=== PATIENT | female | born 1955 | race Caucasian/White ===

== ENCOUNTER 2022-03-27 21:13 | Inpatient (IN) | payer MEDICARE, BC, SELFPAY ==
--- NOTE | 2022-03-27 21:17 | ECG_ITS ---
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 Measurements Intervals [place] Rate: 66 P: 73 FL: 151 QRS: 80 QRSD: 86 T: 84 QT: 391 QTc: 410 Interpretive Statements SINUS RHYTHM Compared to ECG 02/01/2019 21:39:21 No significant changes Electronically Signed On 03-28-2022 16:31:46 CDT by Dusty Davalos M.D. [id number]
[2022-03-27 21:23] VITALS: BP 125/79; PULSE 60; RESP 18; TEMP 36.7; O2SAT 100; BMI 20.9
[2022-03-27 22:19] LABS: Basophils % 0.5 %; Eosinophils # 0.2 10^3/uL (0.0-0.8); Eosinophils % 2.9 %; Hematocrit 38.2 % (37.0-47.0); Lymphocytes # 2.6 10^3/uL (0.8-4.8); Lymphocytes % 31.8 %; Mean Corpuscular Hemoglobin 31.7 pg (28.0-34.0); Mean Corpuscular Volume 93.2 fl (81-99); Mean Platelet Volume 10.2 fL (7.4-10.4); Monocytes # 0.8 10^3/uL (0.2-0.9); Monocytes % 9.6 %; Neutrophils # 4.56 10^3/uL (1.8-7.7); Nucleated Red Blood Cells % 0 %; Platelet Count 206 10^3/cmm (130-400); Red Cell Distribution Width 13.5 % (12.1-15.1); White Blood Count 8.3 10^3/uL (4.0-10.0)
[2022-03-27 22:45] LABS: Troponin(5th) Baseline 304 ng/L (0-10)
[2022-03-27 22:50] LABS: Alanine Aminotransferase 16 U/L (0-33); Albumin Level 4.3 g/dL (3.5-5.2); Alkaline Phosphatase 64 IU/L (35-105); Anion Gap 12.5 (5-19); Aspartate Amino Transferase 27 U/L (0-32); Blood Urea Nitrogen 20 mg/dL (8-23); Calcium 9.2 mg/dL (8.5-10.5); Carbon Dioxide 28 mmol/L (22-29); Chloride 100 mmol/L (98-107); Glomerular Filtration Rate 83.7 mL/min (90-130); Glucose 107 mg/dL (65-115); Lipase 36 U/L (13-60); NT Pro B Type Natriuretic Pept 464 pg/mL (0-125); Osmolality Calculated 285 mOsm/kg (285-295); Potassium 4.5 mmol/L (3.5-5.1); Sodium 136 mmol/L (136-145); Total Bilirubin 0.2 mg/dL (0.15-1.2); Total Protein 6.3 g/dL (6.6-8.7)
--- NOTE | 2022-03-27 22:58 | PC.NURSE ---
patient brought back to room 12 and placed on desk monitor. Repeat ekg performed and hswon to dr. albrecht. patient c/o chest returned @ 04/[address] Albrecht at bedside.
[2022-03-27] MEDS: aspirin 81 mg Chew Tablet 324 MG PO (23:05)
[2022-03-27] MEDS: clopidogrel 300 mg Tablet PO ×2 (23:06→23:07)
[2022-03-27] MEDS: enoxaparin 60 mg/0.6 mL Syringe SUBCUT (23:14)
--- NOTE | 2022-03-27 23:14 | ED_ITS ---
HPI - General Adult General: Chief complaint: Chest Pain Stated complaint: chest pain Time Seen by Provider: 03/27/22 22:47 History of Present Illness: 67-year-old female with a history hypertension presenting to the emergency room for concerns of chest pressure since 9 PM today. Patient reports severe at vice-client services director chest pressure with nausea without vomiting. Patient has never experienced any pain like this. No prior history of CAD. Patient denies any fever/chills, cough, runny nose sore throat, abdominal complaints, melena/hematochezia or diarrhea. Onset:9pm Duration:ongoing Location:home Severity:severe Associated symptoms: Reports chest pain; Deny dyspnea, nausea, rash, palpitations or vomiting Review of Systems Const: Denies: fever(s) or chills Eyes: Denies: change in vision ENMT: Denies: mouth pain Card: Reports: chest pain; Denies: palpitations Resp: Denies: dyspnea or non-productive cough GI: Denies: abdominal pain, nausea, vomiting or diarrhea : Denies: dysuria Musc: Denies: extremity pain Skin/Breast: Denies: rash or new lesions Neuro: Denies: weakness in extremities Psych: Reports: other (Normal mood) Jos/Lymph: Denies: easy bruising PFSH ED PFSH: Medical History (Updated 03/28/22 @ 00:46 by Dusty Davalos M.D) Hypertension Social History Smoking and tobacco status: never smoked Alcohol intake: never Substance/Drug Use: never Physical Exam Const: COMMON NORMALS: alert HENMT: COMMON NORMALS: atraumatic HEAD & SCALP: atraumatic MOUTH: moist mucous membranes not abnormal Eye: COMMON NORMALS: EOMs intact bilaterally and conjunctivae normal CONJUNCTIVA: Yes conjunctivae normal Neck/C-Spine: COMMON NORMALS: full ROM and supple Resp: COMMON NORMALS: normal respiratory effort and clear to auscultation bilaterally AUSCULTATION: clear to auscultation bilaterally Cardio: COMMON NORMALS: regular rate RATE: regular rate GI: COMMON NORMALS: Soft to palpation and non-tender PALPATION: Yes Soft to palpation Extremity: COMMON NORMALS: full ROM Neuro: SENSORIUM/ORIENTATION: Yes alert MOTOR EXAM: No Abnormal motor strength present and Other motor observations present (no focal motor deficits) Psych: COMMON NORMALS: speech normal SPEECH: Yes normal speech MOOD & AFFECT: Yes euthymic mood Course Vital Signs: Vital signs: Vital Signs Temperature 97.8 F 03/28/22 00:05 Pulse Rate 62 03/28/22 10:02 Respiratory Rate 18 03/28/22 05:00 Blood Pressure 139/72 03/28/22 01:05 Pulse Oximetry 98 03/28/22 10:02 MDM - General Adult Medical Decision Making 67-year-old female with history of hypertension presenting to the emergency room with chest pressure since 9 PM. Initial troponin of 300. Initial EKG not meet STEMI criteria. Repeat EKG at 11:11 showed STEMI consistent with inferioposteriolateral STEMI. Patient received aspirin 325, multiple doses of nitro, morphine, Lovenox, and Plavix 600 mg. Case was discussed needed with Dr. Davalos who recommended Boat Finisher. 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 Lab Data : 03/27/22 22:11 03/27/22 22:11 Laboratory Results WBC 8.3 10^3/uL (4.0-10.0) 03/27/22 22:11 RBC 4.10 10^6/uL (4.1-5.3) 03/27/22 22:11 Hgb 13.0 g/dL (11.5-15.3) 03/27/22 22:11 Hct 38.2 % (37.0-47.0) 03/27/22 22:11 MCV 93.2 fl (81-99) 03/27/22 22:11 MCH 31.7 pg (28.0-34.0) 03/27/22 22:11 MCHC 34.0 g/dL (30.0-36.0) 03/27/22 22:11 RDW 13.5 % (12.1-15.1) 03/27/22 22:11 Plt Count 206 10^3/cmm (130-400) 03/27/22 22:11 MPV 10.2 fL (7.4-10.4) 03/27/22 22:11 Neut % (Auto) 55.0 % 03/27/22 22:11 Lymph % (Auto) 31.8 % 03/27/22 22:11 [place] % (Auto) 9.6 % 03/27/22 22:11 Eos % (Auto) 2.9 % 03/27/22 22:11 Baso % (Auto) 0.5 % 03/27/22 22:11 Neut # (Auto) 4.56 10^3/uL (1.8-7.7) 03/27/22 22:11 Lymph # (Auto) 2.6 10^3/uL (0.8-4.8) 03/27/22 22:11 [place] # (Auto) 0.8 10^3/uL (0.2-0.9) 03/27/22 22:11 Eos # (Auto) 0.2 10^3/uL (0.0-0.8) 03/27/22 22:11 Baso # (Auto) 0.0 10^3/uL (0.0-0.1) 03/27/22 22:11 Nucleated RBC % (auto) 0 % 03/27/22 22:11 Nucleated RBCs # 0.0 /100WBC 03/27/22 22:11 PT 13.00 SECONDS (12.1-14.9) 03/27/22 22:11 INR 0.96 (0.8-1.2) 03/27/22 22:11 APTT 32.4 SECONDS (23.9-36.7) 03/27/22 22:11 Sodium 136 mmol/L (136-145) 03/27/22 22:11 Potassium 4.5 mmol/L (3.5-5.1) 03/27/22 22:11 Chloride 100 mmol/L (98-107) 03/27/22 22:11 Carbon Dioxide 28 mmol/L (22-29) 03/27/22 22:11 Anion Gap 12.5 (5-19) 03/27/22 22:11 BUN 20 mg/dL (8-23) 03/27/22 22:11 Creatinine 0.7 mg/dL (0.5-0.9) 03/27/22 22:11 GFR Calculation 83.7 mL/min (90-130) L 03/27/22 22:11 Glucose 107 mg/dL (65-115) 03/27/22 22:11 Calculated Osmolality 285 mOsm/kg (285-295) 03/27/22 22:11 Calcium 9.2 mg/dL (8.5-10.5) 03/27/22 22:11 Total Bilirubin 0.2 mg/dL (0.15-1.2) 03/27/22 22:11 AST 27 U/L (0-32) 03/27/22 22:11 ALT 16 U/L (0-33) 03/27/22 22:11 Alkaline Phosphatase 64 IU/L (35-105) 03/27/22 22:11 Troponin T Baseline 304 ng/L (0-10) H* 03/27/22 22:11 NT-Pro-B Natriuret Pep 464 pg/mL (0-125) H 03/27/22 22:11 Total Protein 6.3 g/dL (6.6-8.7) L 03/27/22 22:11 Albumin 4.3 g/dL (3.5-5.2) 03/27/22 22:11 Globulin 2.0 g/dL (1.3-4.6) 03/27/22 22:11 Lipase 36 U/L (13-60) 03/27/22 22:11 Discharge Plan Discharge Patient Disposition: Admitted As Inpatient Admit Provider: Dusty Davalos Clinical Impression: ST elevation (STEMI) myocardial infarction Condition: Stable Coding Level of Care Code ED Watch Parts Inspector for Ludyg Fwd Exam Comprehensive
[2022-03-27 23:16] LABS: INR 0.96 (0.8-1.2); Partial Thromboplastin Time 32.4 SECONDS (23.9-36.7)
--- NOTE | 2022-03-27 23:17 | ECG_ITS ---
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 Measurements Intervals [place] Rate: 76 P: 88 [place]: 150 QRS: 89 QRSD: 85 T: 86 QT: 384 QTc: 433 Interpretive Statements SINUS RHYTHM WITH FREQUENT VENTRICULAR PREMATURE COMPLEXES Compared to ECG 03/27/2022 21:20:56 Ventricular premature complex(es) now present Electronically Signed On 03-28-2022 16:38:52 CDT by Dusty Davalos M.D. [email or web address].[employer]/store/[id number]
[2022-03-27] MEDS: morphine 4 mg/mL SDV 1 mL 2 MG IVP (23:21)
--- NOTE | 2022-03-27 23:23 | PC.NURSE ---
Went to admin sublingual nitro to patient. Dr Anguiano stated to hold medication after being scanned.
--- NOTE | 2022-03-27 23:26 | XACV_ITS ---
Exam Room: 2 Ht: 168 cm Wt: 59 kg BSA: 1.66 m2 Gender: Female : 1955 Any Known Allergies: No known allergies Exam Priority: Routine Procedure(s): Procedure Description: Diagnostic procedure Procedure Description: Left Heart Catheterization Procedure Description: Left ventriculography Procedure Description: Coronary Angiography Diagnostic Cath Status: Emergency Diagnostic Findings * Left main artery: Short * , patent. No significant * stenosis Left circumflex artery: In the distal segment, diffuse narrowing consistent with spontaneous coronary artery dissection(SCAD) extending into OM branch. LAD: Patent. No significant stenosis RCA: Patent with no significant stenosis . * INDICATION: 67 year old female with past medical history of hypertension came to the hospital with on and off chest pain for the last 2 days. Her father recently and since then she has been having chest discomfort. It got worse about 1 to 2 hours prior to hospital presentation. Initial EKG did not reveal ST elevation. She was having frequent PVCs. Repeat EKG demonstrated ST elevations in inferior and posterior leads. Financial Systems Manager was activated and patient was brought to the cardiac Financial Systems Manager emergently. * Coronary angiography shows right dominance. Conclusions 1. Left main artery: Short 2. , patent. No significant 3. stenosis Left circumflex artery: In the distal segment, diffuse narrowing consistent with spontaneous coronary artery dissection(SCAD) extending into OM branch. LAD: Patent. No significant stenosis RCA: Patent with no significant stenosis . 4. Moderate left ventricular systolic dysfunction. Ejection fraction of 40%. Recommendations * Patient will be treated medically as has SCAD of left circumflex artery and stress cardiomyopathy. * Aspirin Plavix for at least 1 year. * High intensity statin therapy. * Beta-ting and lisinopril therapy. * Transferred to ICU. * Order echocardiogram. Interventional RX Recommendation: medical therapy and/or counseling Diagnostic RX Recommendation: medical therapy and/or counseling Anticoagulation: Heparin Ventriculography Ejection Fraction: 40.0 % Left Ventriculography Findings: * Apical hypokinesis consistent with stress cardiomyopathy. Pressures Phase:Rest AO : 122 / 82 ( 101 ) @ 6:57:02 PM 119 / 78 ( 97 ) @ 6:57:02 PM 123 / 79 ( 99 ) @ 6:57:02 PM 142 / 76 ( 106 ) @ 6:57:02 PM 140 / 74 ( 104 ) @ 6:57:02 PM LV : 155 / -9 / 15 @ 6:57:02 PM 133 / 20 / 17 @ 6:57:02 PM 128 / 0 / 20 @ 6:57:02 PM Valves Phase:DefaultPhase AV : 0.0 @ 11:57:02 PM 0.0 @ 11:57:02 PM AV Mean Gradient: 0.0 @ 11:57:02 PM Clinical Evaluation EBL: 5mL-10mL Procedural Details Pre-Procedure Time Out. Identified patient by full name and date of as verbalized by the patient/guarantor. Does the consent match the physician's order: N/A Emergent. Accurate & Complete Informed Consent: N/A Emergent. Inpatient/Outpatient History & Physical on Chart: N/A Emergent. If H&P is completed, is and addenduem needed: N/A Emergent; If yes, is the addendum complete: N/A Emergent. Visualize and Verify Site with Patient/Guarantor: N/A. Relevant Radiology Images available: N/A Emergent. Pre-op teaching completed and patient verbalized understanding. The risks, benefits, and alternatives of sedation and/or procedure were discussed by physician. The patient agrees to continue. Procedure started. [facility] Clinical Fraility Score: 3: Managing Well. Financial Systems Manager Indications: ACS <= 24 hours. Chest Pain Symptom Assessment: Typical Angina Symptoms. Cardiovascular Instability: Yes, if yes, Persistant Ischemic Symptoms. Correct patient, site and procedure confirmed by cath team. Current diagnosis: STEMI. PERRLA. Strong, equal hand elementary secretary bilaterally. Lungs clear x 5 lobes. IV Site on Arrival: 18 gauge in the left anticubital. IV Fluids: 0.9% NaCl at KVO. 0 mL infused prior to solar lab technician. Oxygen started at 2liters/min via nasal canula. right groin was prepped with chloroprep then draped in the usual sterile fashion. right radial was prepped with chloroprep then draped in the usual sterile fashion. Physician notified. Baseline sample Acquired. HR: 70 BPM. Physician arrived. Physician scrubbed in. Immediate Pre-Procedure Time Out. Correct Patient: N/A Emergent; Correct Procedure: N/A Emergent; Correct Site: N/A Emergent; Correct Patient Position: N/A Emergent; Correct Supplies: N/A Emergent; Dried Flammable Prep: N/A Emergent; Blood Products Available: N/A Emergent;. Lidocaine 1% infiltrated to the right radial. Current Diagnosis : STEMI. Arterial access obtained. A 5 nauruan TIG catheter in over wire. Multiple views taken of left coronary artery. Catheter redirected to the RCA. Multiple views taken of right coronary artery. Catheter removed over the standard wire. A 5 nauruan Angled Pig catheter in over wire. EDP Sample taken: LV 155/-9,15; HR: 96 BPM; SpO2: 99%. LV gram performed in MADSEN @ 10 mL/second for a total of 30 mL. EDP Sample taken: LV 133/20,17; HR: 98 BPM; SpO2: 100%. Pullback taken: LV 128/0,20; AO 142/76(106); Mean: 0mmHg, Peak to Peak: 0mmHg, SEP: 6sec/min; HR: 71 BPM; SpO2: 100%. Catheter removed over the exchange wire. Physician scrubbed out. A TR Band was successful obtaining hemostatsis at the Right Radial artery insertion site. TR band placed. Hemostasis obtained. Post Procedure: Pulses reassessed and unchanged. PERRLA. Strong, equal hand elementary secretary bilaterally. No VTE prophylaxis required. Medication's Wasted: Lidocaine 1% = 2 mL. Medication's Wasted: Nitro = 49.6 mg. Medication's Wasted: Heparin = 1000 units. Medication's Wasted: Other = Fentanyl 75 mg. Vital chart was stopped. Total IV fluids: 19 mL. Contrast type used: Omnipaque 300 mgI/mL, 500 mL bottle. 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 Complications: None. Estimated blood loss: 5mL-10mL. Responsiveness - Normal response to verbal stimuli; alert and oriented, PERRLA. Airway - Unaffected, no intervention required; spontaneous ventilation. Circulation: W/N/L, pulses unchanged. Nausea/Vomiting: No. Procedure completed. Patient transferred by wheelchair to ICU. Access Site Site: Right Radial artery Sheath Size: 6 Fr Hemostasis Method: TR Band Hemostasis Success: Successful Procedure Medications Start: 11:38 PM Stop: 11:38 PM Medication: Versed Amount: 2 mg Route: I.V. Start: 11:38 PM Stop: 11:38 PM Medication: Fentanyl Amount: 25 mcg Route: I.V. Start: 11:41 PM Stop: 11:41 PM Medication: Nitrogylcerin Amount: 200 mcg Route: I.A. Start: 11:46 PM Stop: 11:46 PM Medication: Nitrogylcerin Amount: 200 mcg Route: I.A. I, the attending physician, have reviewed and verified all procedure medications. Yes, all medications given per verbal order History/Risk Factors Hypertension: No Dyslipidemia: No Peripheral Arterial Disease (PAD): No Myocardial Infarction (MT): No Obesity: No Prior Interventions PCI: No CABG: No Valve Surgery: No Report Signatures Finalized by Dusty Davalos MD on 04/05/2022 05:31 PM
--- NOTE | 2022-03-27 23:27 | PC.NURSE ---
4mg Morphine not given due to order change.
--- NOTE | 2022-03-27 23:33 | PM.HP ---
Providers/Chief Complaint Admitting Physician: Dusty Davalos MD/Cardiology Chief Complaint: chest pain History of Present Illness Nanda Benavides is a 67 year old female with past medical history of hypertension came to the hospital with on and off chest pain for the last 2 days. Her father recently and since then she has been having chest discomfort. It got worse about 1 to 2 hours prior to hospital presentation. Initial EKG did not reveal ST elevation. She was having frequent PVCs. Repeat EKG demonstrated ST elevations in inferior and posterior leads. Secretary Specialist was activated and patient was brought to the cardiac Secretary Specialist emergently. Coronary angiogram demonstrates spontaneous coronary artery dissection of distal left circumflex artery. LV gram shows reduced LV systolic function with EF of 35 to 40% and apical ballooning, pattern consistent with stress cardiomyopathy. Medical therapy was decided. Review of Systems Narrative: CONSTITUTIONAL: No fever chills weight loss or gain or night sweats. [] HEENT: Normocephalic, atraumatic.[] RESPIRATORY: No cough, sputum, hemoptysis or wheezing.[] CARDIOVASCULAR: Has chest pain. GI: no nausea vomiting diarrhea. [] ELECTRONICS TECHNICIAN: No numbness, tingling, weakness or loss of function in any part of the body. [] MUSCULOSKELETAL: No knee or joint pain or rashes. [] Medications/Allergies Home Medications Medication Instructions Recorded Confirmed Last Taken Type atorvastatin 10 mg tablet mg 03/28/22 03/27/22 History citalopram 20 mg tablet mg 03/28/22 03/27/22 History doxycycline calcium 03/28/22 03/27/22 History loratadine 10 mg tablet (Claritin) 10 mg PO DAILY 03/28/22 03/28/22 03/27/22 History olmesartan 5 mg tablet mg 03/28/22 1 Day Ago History ~03/27/22 prednisolone acetate 1 % eye drp 03/28/22 Unknown History drops,suspension Allergies Allergy/AdvReac Type Severity Reaction Status Date / Time No Known Allergies Allergy Verified 03/27/22 21:22 PFSH Acute PFSH: Medical History (Updated 03/28/22 @ 00:46 by Dusty Davalos M.D) Hypertension Social History Smoking and tobacco status: never smoked Alcohol intake: never Substance/Drug Use: never Vitals/I&O/Wt Last Vital Signs Temp 98.1 F 03/27/22 21:23 Pulse 60 03/27/22 21:23 Resp 18 03/27/22 21:23 BP 125/79 03/27/22 21:23 Pulse Ox 100 03/27/22 21:23 Weight last 48 hrs Weight 130 lb Physical Exam Narrative: GENERAL: Patient is alert, awake and oriented x3. [] NECK: No jugular vein distension. [] HEENT: No cyanosis. No icterus. No pallor. [] HEART: Regular S1 and S2. No murmur, rub or gallop. [] LUNGS: Clear to auscultate bilaterally. [] ABDOMEN: Soft, nontender and nondistended. Positive bowel sounds. No guarding, rebound or tenderness. [] CENTRAL NERVOUS SYSTEM: Grossly nonfocal. [] EXTREMITIES: Lower extremities with 1+ edema bilaterally. Pulses palpable in the lower extremities, both dorsalis pedis and posterior tibial. [] Data : 03/27/22 22:11 03/27/22 22:11 A&P Assessment and plan (1) Hypertension: Status: Acute (2) Stress-induced cardiomyopathy: Status: Acute (3) Spontaneous dissection of coronary artery: Status: Acute Plan Patient has presented with chest pain. Initial EKG did not show ST elevation however repeat EKG demonstrated inferior and posterior ST elevations. She was emergently brought to the cardiac Secretary Specialist. Coronary angiogram demonstrates spontaneous coronary artery dissection of distal left circumflex artery. It has compromised flow into a very tortuous small sized OM. Decision made to medically treat at this time. Patient also has apical ballooning. This is consistent with her recent major life stressor. Continue aspirin and Plavix. We will start beta-ting therapy with metoprolol 12.5 twice daily at this time. Continue atorvastatin. Will continue with anticoagulation for 48 hours. Order echocardiogram. Attestations Medical Necessity Statement*: Care expect acute ST elevation [place]. Patient presented with chest pain, EKG evolved into ST elevation OH. Coronary angiogram demonstrated spontaneous coronary artery dissection of left circumflex artery and apical ballooning on LV gram was seen. Medical management for these issues. Coding Level of Care Code Acute Police Radio Dispatcher for [facility] [place] Diagnoses Hypertension I10 Stress-induced cardiomyopathy I51.81 Spontaneous dissection of coronary artery I25.42
[2022-03-28] VITALS (36 sets, daily range): BP systolic 105–139; BP diastolic 59–80; PULSE 54–86; RESP 14–25; TEMP 36.6–36.8; O2SAT 93–100
--- NOTE | 2022-03-28 00:41 | USCV_ITS ---
Nanda Benavides Age: 67 Gender: F : 1955 Exam Date: 03/28/2022 02:30 Ordering Phys: Dusty Davalos M.D ([email or web address]) Technologist: MARGARET [place]am Location[place] [facility] [place] Indication: post CT BP: 139 / 72 HR: 63 Rhythm: Sinus Technical Quality: Adequate MEASUREMENTS (Male / Female) Normal Values 2D ECHO LV Diastolic Diameter PLAX 3.6 cm 4.2 - 5.9 / 3.9 - 5.3 cm LV Systolic Diameter PLAX 2.3 cm IVS Diastolic Thickness 0.9 cm 0.6 - 1.0 / 0.6 - 0.9 cm IVS Systolic Thickness 1.2 cm LVPW Diastolic Thickness 1.0 cm 0.6 - 1.0 / 0.6 - 0.9 cm LVPW Systolic Thickness 1.2 cm LVOT Diameter 1.8 cm LV Ejection Fraction 2D Teich 67.3 % LV Ejection Fraction MOD 2C 63.6 % LV Ejection Fraction 2C AL 63.7 % LA Diameter 3.2 cm LA Width 3.9 cm LA Height 4.5 cm RA Width 2.7 cm RA Height 4.0 cm Aorta at Sinotubular Diameter 3.0 cm IVC Diameter 1.9 cm M-MODE Aortic Annulus Diameter 2.3 cm LA Ao Ratio MM 1.3 MV E Point Septal Separation 0.5 cm DOPPLER AV Peak Velocity 146.0 cm/s LVOT Peak Velocity 81.0 cm/s AV Area Cont Eq vti 1.5 cm squared AV Area Cont Eq pk 1.3 cm squared MV Peak Velocity 108.0 cm/s MV Area PHT 2.8 cm squared Mitral E to A Ratio 1.2 MV E' Velocity 45.5 cm/s Mitral E to MV E' Ratio 7.3 Mitral E to LV E' Lateral Ratio 8.5 Mitral E to LV E' Septal Ratio 6.5 TR Peak Velocity 241.5 cm/s TR Peak Gradient 23.3 mmHg TV Peak E Velocity 43.0 cm/s Right Atrial Pressure 5.0 mmHg Pulmonary Artery Systolic Pressu 28.3 mmHg PV Peak Velocity 79.0 cm/s RV Acceleration Time 0.1 s RV Ejection Time 0.4 s RV AcT/ET 0.3 FINDINGS Left Ventricle Left ventricle is normal in size. LV systolic function is mildly reduced with EF of 45 to 50%. Mild to moderate hypokinesis of apical inferolateral, apical and distal anterolateral huang. Right Ventricle Normal in size and function. Right Atrium Normal in size Left Atrium Normal in size Mitral Valve Normal in structure. Trace mitral regurgitation. Aortic Valve Normal anatomy structure. No significant stenosis or regurgitation. Tricuspid Valve Mild tricuspid regurgitation. RVSP is 25-30. Pulmonic Valve Not well-visualized Pericardium Trace pericardial effusion Aorta Normal aortic size IVC CONCLUSIONS LV systolic function is mildly reduced with EF of 45 to 50%. Mild to moderate hypokinesis of apical inferolateral, apical and distal anterolateral huang. Trace mitral regurgitation. No significant valvular heart disease seen. No comparison studies are available Dusty Davalos MD (Electronically Signed) Final Date: 28 March 2022 17:29 S
[2022-03-28] MEDS: sodium chloride 0.9% 1,000 ML 100 ML IV ×3 (00:59→21:28)
[2022-03-28] MEDS: metoprolol tartrate 25 mg Tablet 12.5 MG PO (01:01)
[2022-03-28] MEDS: temazepam 15 mg Capsule PO (01:01)
--- NOTE | 2022-03-28 03:17 | ECG_ITS ---
[facility] Test Date: 2022-03-28 Pat Name: Nanda Benavides Department: Room: ICU02 Gender: Female Global Process Owner: : 1955 Requested By: Jon Arreguin Order Number: [id number] Lluvia MD: Dusty Davalos M.D. Measurements Intervals [place] Rate: 59 P: 80 [place]: 164 QRS: 90 QRSD: 90 T: 79 QT: 411 QTc: 410 Interpretive Statements SINUS BRADYCARDIA ST ELEVATION, CONSIDER INFERIOR INJURY [MARKED ST ELEVATION W/O NORMALLY INFLECTED T-WAVE IN II/aVF] ACUTE HI Compared to ECG 03/27/2022 22:49:16 ST (T wave) deviation now present Myocardial infarct finding now present Sinus rhythm no longer present Ventricular premature complex(es) no longer present Electronically Signed On 03-28-2022 16:36:12 CDT by Dusty Davalos M.D. [id number]
[2022-03-28] MEDS: fentaNYL 50 mcg/mL INJ 2mL 25 MCG IVP (05:00)
[2022-03-28 05:59] LABS: Troponin 5 6HR 600.9 ng/L (0-10); Troponin 5 6HR Delta 296.9 ng/L (0-12)
--- NOTE | 2022-03-28 07:32 | PC.PHAR ---
UNABLE TO VERIFY MEDICATIONS WITH PT-MEDICATIONS ENTERED ARE WHAT EXT MED HISTORY SHOWS HAS BEEN FILLED RECENTLY
--- NOTE | 2022-03-28 08:02 | ECG_ITS ---
[facility] Test Date: 2022-03-28 Pat Name: Nanda Benavides Department: Room: ICU02 Gender: Female Validation Analyst: : 1955 Requested By: Dusty Davalos Order Number: [id number] Lluvia MD: Dusty Davalos M.D. Measurements Intervals [place] Rate: 58 P: 75 [place]: 171 QRS: 65 QRSD: 86 T: -11 QT: 412 QTc: 405 Interpretive Statements SINUS BRADYCARDIA WITH OCCASIONAL VENTRICULAR PREMATURE COMPLEXES ABNORMAL QRS-T ANGLE [QRS-T AXIS DIFFERENCE > 60] Compared to ECG 03/28/2022 03:26:18 Ventricular premature complex(es) now present ST (T wave) deviation no longer present Myocardial infarct finding no longer present Electronically Signed On 03-28-2022 16:30:11 CDT by Dusty Davalos M.D. [id number]
[2022-03-28] MEDS: metoprolol tartrate 25 mg Tablet PO ×2 (09:27→20:15)
[2022-03-28] MEDS: clopidogrel 75 mg Tablet PO (09:27)
[2022-03-28] MEDS: enoxaparin 60 mg/0.6 mL Syringe SUBCUT ×2 (09:28→21:06)
[2022-03-28] MEDS: aspirin 81 mg EC Tablet PO (09:28)
--- NOTE | 2022-03-28 10:41 | PC.CHAP ---
Pastoral Care Encounter/Spiritual Assessment Type of Contact [] Declined freelance graphic designer visit [] Patient/Family/Request visit [] Outpatient visit [] Follow-up visit [] Physician referral [] Code/Alert [x] Routine visit [] Staff referral [] Actively dying [x] Patient sleeping [] Family support [] [] Out of room [] Palliative care [] [] Receiving care in room [] Pre-surgical visit [] Trauma [] Long length of stay [x] ICU visit [] Other: Relational/Emotional Strength [] Patient feels connected with others/family/visitors/staff [] Distress [] Loneliness/isolation [] Abandonment Spirituality of Patient [] Person of Jill [] Attends Jew of their Jill [] Believes in Prayer [] Reads Bible or Samaritan materials [] There are Spiritual issues to be addressed Digestion Operator Interventions [x] Prayer [] Active listening [] Non-anxious presence [] Spiritual/emotional support [] Crisis/trauma care [] Spiritual counseling [] Bereavement support [] Provided bereavement packet [] Provided Bible/devotional materials [] Provided toy/stuffed animal, coloring book to patient or family member [] Provided Communion [] Anointing/[place] [] Salvation [x] Completed spiritual assessment [] Other: Impact on Illness or Injury [] Angry [] Fearful [] Anxious [] Often cries [] Exhaustion [] Unable to work [] Unable to attend mu-ism [] Unable to walk/stand [] Unable to read [] Unable to drive [] Unable to eat/drink [] Unable to sleep [] Unable to be with family [] Patient intubated [] Other: Summary Time spent with patient
--- NOTE | 2022-03-28 17:31 | P.PN_ITS ---
Subjective Subjective: Patient is feeling better. No chest pain now. EKG changes have resolved. Vitals/I&O/Wt Last Vital Signs Temp 98.2 F 03/28/22 10:00 Pulse 61 03/28/22 16:00 Resp 20 H 03/28/22 16:00 BP 122/71 03/28/22 16:00 Pulse Ox 96 03/28/22 16:00 03/28/22 03/28/22 03/28/22 06:59 14:59 22:59 Intake Total 200 / 200 1088.333 / 1088.333 Output Total Balance 200 / 200 1087.333 / 1087.333 Weight last 48 hrs Weight 130 lb Physical Exam Narrative: GENERAL: Patient is alert, awake and oriented x3. [] NECK: No jugular vein distension. [] HEENT: No cyanosis. No icterus. No pallor. [] HEART: Regular S1 and S2. No murmur, rub or gallop. [] LUNGS: Clear to auscultate bilaterally. [] ABDOMEN: Soft, nontender and nondistended. Positive bowel sounds. No guarding, rebound or tenderness. [] CENTRAL NERVOUS SYSTEM: Grossly nonfocal. [] EXTREMITIES: Lower extremities with 1+ edema bilaterally. Pulses palpable in the lower extremities, both dorsalis pedis and posterior tibial. 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 Initial EKG did not show ST elevation however repeat EKG demonstrated inferior and posterior ST elevations. She was emergently brought to the cardiac Carpentry Professional. Coronary angiogram demonstrates spontaneous coronary artery dissection of distal left circumflex artery. It had compromised flow into a very tortuous small sized OM. Decision made to med [facility] and the [facility] treat at this time. Patient also has apical ballooning. This is consistent with her recent major life stressor and stress cardiomyopathy. Continue aspirin and Plavix. Metoprolol uptitrated Continue atorvastatin, will uptitrate Will continue with anticoagulation for 48 hours. ECHO ordered If patient stays stable by tomorrow, plan on discharging home tomorrow. Attestations Medical Necessity Statement*: Care expected to cross [address] elevation [place] was found to have spontaneous coronary artery dissection and stress cardiomyopathy. Will be medically treated. Coding Level of Care Code Acute Crop Puller for Dejan Aguila Diagnoses Hypertension I10 Stress-induced cardiomyopathy I51.81 Spontaneous dissection of coronary artery I25.42
[2022-03-28] MEDS: atorvastatin 40 mg Tablet PO (20:15)
[2022-03-29] VITALS (20 sets, daily range): BP systolic 105–125; BP diastolic 66–80; PULSE 53–90; RESP 18–27; TEMP 36.8–37.1; O2SAT 93–98
[2022-03-29] MEDS: temazepam 15 mg Capsule PO (00:31)
[2022-03-29 05:06] LABS: Basophils % 0.5 %; Eosinophils # 0.1 10^3/uL (0.0-0.8); Eosinophils % 2.5 %; Hematocrit 36.1 % (37.0-47.0); Hemoglobin 11.1 g/dL (11.5-15.3); Lymphocytes # 2.1 10^3/uL (0.8-4.8); Lymphocytes % 37.8 %; Mean Corpuscular HGB Conc 30.7 g/dL (30.0-36.0); Mean Corpuscular Hemoglobin 31.4 pg (28.0-34.0); Mean Platelet Volume 10.4 fL (7.4-10.4); Monocytes # 0.6 10^3/uL (0.2-0.9); Monocytes % 10.8 %; Neutrophils # 2.67 10^3/uL (1.8-7.7); Neutrophils % 48.2 %; Nucleated Red Blood Cells % 0 %; Platelet Count 166 10^3/cmm (130-400); Red Blood Count 3.54 10^6/uL (4.1-5.3); Red Cell Distribution Width 14.2 % (12.1-15.1); White Blood Count 5.6 10^3/uL (4.0-10.0)
[2022-03-29 05:31] LABS: Blood Urea Nitrogen 12 mg/dL (8-23); Calcium 7.7 mg/dL (8.5-10.5); Carbon Dioxide 24 mmol/L (22-29); Chloride 110 mmol/L (98-107); Glomerular Filtration Rate 123.4 mL/min (90-130); Glucose 96 mg/dL (65-115); Osmolality Calculated 290 mOsm/kg (285-295); Sodium 140 mmol/L (136-145)
[2022-03-29] MEDS: aspirin 81 mg EC Tablet PO (07:55)
[2022-03-29] MEDS: clopidogrel 75 mg Tablet PO (07:56)
[2022-03-29] MEDS: metoprolol tartrate 25 mg Tablet PO (07:56)
--- NOTE | 2022-03-29 08:12 | P.DS_ITS ---
Discharge Providers Date of Admission: 03/27/2022 Date of Discharge: March 29, 2022 Attending Provider at Admission: Dusty Davalos M.D Attending Provider at Discharge: Dusty Davalos M.D Diagnoses at Discharge Discharge Diagnosis (1) Hypertension: Status: Acute (2) Stress-induced cardiomyopathy: Status: Acute (3) Spontaneous dissection of coronary artery: Reason for Visit Reason for Visit: chest pain Brief History: ?67 year old female with past medical history of hypertension came to the [facility] with on and off chest pain for the last 2 days.? Her father recently and since then she has been having chest discomfort.? It got worse about 1 to 2 hours prior to hospital presentation.? Initial EKG did not reveal ST elevation.? She was having frequent PVCs.? Repeat EKG demonstrated ST elevations in inferior and posterior leads.? Engine Assembly Supervisor was activated and patient was brought to the cardiac Engine Assembly Supervisor emergently.? Hospital Course Hospital Course ?67 year old female with past medical history of hypertension came to the hospital with on and off chest pain for the last 2 days.? Her father recently and since then she has been having chest discomfort.? It got worse about 1 to 2 hours prior to hospital presentation.? Initial EKG did not reveal ST elevation.? She was having frequent PVCs.? Repeat EKG demonstrated ST elevations in inferior and posterior leads.? Engine Assembly Supervisor was activated and patient was brought to the cardiac Engine Assembly Supervisor emergently. Coronary angiogram showed spontaneous coronary artery dissection of left circumflex artery extending into an OM branch. Medical therapy was decided. LV gram showed hypokinesis of apex, consistent with stress-induced cardiomyopathy. Echocardiogram later showed improved LV systolic function with EF of 45 to 50%. Patient chest pain was managed medically. She was transferred to ICU. She became chest pain-free and EKG changes resolved. She was discharged home in a stable condition on aggressive medical therapy. Physical Exam Narrative: GENERAL: Patient is alert, awake and oriented x3. [] NECK: No jugular vein distension. [] HEENT: No cyanosis. No icterus. No pallor. [] HEART: Regular S1 and S2. No murmur, rub or gallop. [] LUNGS: Clear to auscultate bilaterally. [] ABDOMEN: Soft, nontender and nondistended. Positive bowel sounds. No guarding, rebound or tenderness. [] CENTRAL NERVOUS SYSTEM: Grossly nonfocal. [] EXTREMITIES: Lower extremities with 1+ edema bilaterally. Pulses palpable in the lower extremities, both dorsalis pedis and posterior tibial. [] Discharge Data Studies Completed and Pending Completed Studies During Hospitalization Category Date Time Status CV. echo complete* [id number] Routine Ultrasound 03/28/22 00:41 Completed Pending at discharge Category Date Time Status SPINE SPECIALIST request for service Stat Exams 03/27/22 23:26 Taken Basic Metabolic Panel AM LABS Lab 03/30/22 04:00 Ordered Basic Metabolic Panel AM LABS Lab 03/31/22 04:00 Ordered Complete Blood Count w/Auto AM LABS Lab 03/30/22 04:00 Ordered Complete Blood Count w/Auto AM LABS Lab 03/31/22 04:00 Ordered Laboratory Results WBC 5.6 10^3/uL (4.0-10.0) 03/29/22 04:12 RBC 3.54 10^6/uL (4.1-5.3) L 03/29/22 04:12 Hgb 11.1 g/dL (11.5-15.3) L 03/29/22 04:12 Hct 36.1 % (37.0-47.0) L 03/29/22 04:12 MCV 102.0 fl (81-99) H 03/29/22 04:12 MCH 31.4 pg (28.0-34.0) 03/29/22 04:12 MCHC 30.7 g/dL (30.0-36.0) 03/29/22 04:12 RDW 14.2 % (12.1-15.1) 03/29/22 04:12 Plt Count 166 10^3/cmm (130-400) 03/29/22 04:12 MPV 10.4 fL (7.4-10.4) 03/29/22 04:12 Neut % (Auto) 48.2 % 03/29/22 04:12 Lymph % (Auto) 37.8 % 03/29/22 04:12 Bowman % (Auto) 10.8 % 03/29/22 04:12 Eos % (Auto) 2.5 % 03/29/22 04:12 Baso % (Auto) 0.5 % 03/29/22 04:12 Neut # (Auto) 2.67 10^3/uL (1.8-7.7) 03/29/22 04:12 Lymph # (Auto) 2.1 10^3/uL (0.8-4.8) 03/29/22 04:12 Bowman # (Auto) 0.6 10^3/uL (0.2-0.9) 03/29/22 04:12 Eos # (Auto) 0.1 10^3/uL (0.0-0.8) 03/29/22 04:12 Baso # (Auto) 0.0 10^3/uL (0.0-0.1) 03/29/22 04:12 Nucleated RBC % (auto) 0 % 03/29/22 04:12 Nucleated RBCs # 0.0 /100WBC 03/29/22 04:12 PT 13.00 SECONDS (12.1-14.9) 03/27/22 22:11 INR 0.96 (0.8-1.2) 03/27/22 22:11 APTT 32.4 SECONDS (23.9-36.7) 03/27/22 22:11 Sodium 140 mmol/L (136-145) 03/29/22 04:12 Potassium 4.0 mmol/L (3.5-5.1) 03/29/22 04:12 Chloride 110 mmol/L (98-107) H 03/29/22 04:12 Carbon Dioxide 24 mmol/L (22-29) 03/29/22 04:12 Anion Gap 10.0 (5-19) 03/29/22 04:12 BUN 12 mg/dL (8-23) 03/29/22 04:12 Creatinine 0.5 mg/dL (0.5-0.9) 03/29/22 04:12 GFR Calculation 123.4 mL/min (90-130) 03/29/22 04:12 Glucose 96 mg/dL (65-115) 03/29/22 04:12 Calculated Osmolality 290 mOsm/kg (285-295) 03/29/22 04:12 Calcium 7.7 mg/dL (8.5-10.5) L 03/29/22 04:12 Total Bilirubin 0.2 mg/dL (0.15-1.2) 03/27/22 22:11 AST 27 U/L (0-32) 03/27/22 22:11 ALT 16 U/L (0-33) 03/27/22 22:11 Alkaline Phosphatase 64 IU/L (35-105) 03/27/22 22:11 Troponin T Baseline 304 ng/L (0-10) H* 03/27/22 22:11 Troponin T Hi Sens 6Hr 600.9 ng/L (0-10) H 03/28/22 04:11 Troponin T Hi Sens 6Hr Delta 296.9 ng/L (0-12) H* 03/28/22 04:11 NT-Pro-B Natriuret Pep 464 pg/mL (0-125) H 03/27/22 22:11 Total Protein 6.3 g/dL (6.6-8.7) L 03/27/22 22:11 Albumin 4.3 g/dL (3.5-5.2) 03/27/22 22:11 Globulin 2.0 g/dL (1.3-4.6) 03/27/22 22:11 Lipase 36 U/L (13-60) 03/27/22 22:11 Vitals Last Vital Signs Temp 98.4 F 03/29/22 04:00 Pulse 56 L 03/29/22 05:48 Resp 18 03/29/22 05:30 BP 123/71 03/29/22 06:00 Pulse Ox 95 03/29/22 05:30 Discharge Plan Discharge Patient Disposition: Home Condition: Stable Prescriptions: New atorvastatin 40 mg Tablet 40 mg PO BEDTIME Qty: 90 3RF clopidogrel 75 mg Tablet 75 mg PO DAILY Qty: 90 3RF aspirin 81 mg Tablet,Delayed Release (Dr/Ec) 81 mg PO DAILY Qty: 90 2RF temazepam 15 mg Capsule 15 mg PO BEDTIME PRN (Reason: Insomnia) Qty: 30 0RF metoprolol tartrate 25 mg Tablet 25 mg PO BID@0900,2100 Qty: 120 3RF lisinopril 2.5 mg tablet 2.5 mg PO DAILY Qty: 90 3RF Continued prednisolone acetate 1 % drops,suspension 1 drp ophthalmic (eye) BID citalopram 20 mg tablet 30 mg PO DAILY Claritin 10 mg Tablet 10 mg PO DAILY doxycycline hyclate 100 mg tablet 100 mg PO DAILY alendronate 70 mg tablet 70 mg PO Q7D Discontinued atorvastatin 10 mg tablet 10 mg PO DAILY olmesartan 5 mg tablet 5 mg PO DAILY Discharge Orders: Discharge Order (Routine); Ordered 03/29/22 Ordered By: Dusty Davalos Referrals: Dusty Davalos M.D [Physician] - 1 month (May 23, 2022 at 1515) Carisa Moore FNP [Nurse Practitioner] - 4-7 days (April 05, 2022 at 1045) Discharge Diet: Cardiac Discharge Activity: Increase activity as tolerated Patient Instructions: Metoprolol (By mouth), Lisinopril (By mouth), Temazepam (By mouth), Aspirin (By mouth), Atorvastatin (By mouth), Clopidogrel (By mouth), Opioid Safety Activity Restrictions/Additional Instructions: Please do not lift more than 5 pounds of weight for the next 2 weeks. There will be long-term weight restriction of not lifting more than 30 pounds secondary to spontaneous coronary artery dissection. Discharge Attestations Time Spent in Discharge Care*: greater than 30 min Quality Metrics Clinical Quality Measures [ Acute Myocardial Infaction { Clinical Trial Participant: No; Contraindication to aspirin: None; Aspirin prescribed; Contraindication to statin: None; Statin prescribed; Contraindication to PCI: Intervention not indicated;}] Coding Level of Care Code Acute g [facility] note Diagnoses Hypertension I10 Stress-induced cardiomyopathy I51.81 Spontaneous dissection of coronary artery I25.42
[2022-03-29] MEDS: enoxaparin 60 mg/0.6 mL Syringe SUBCUT (09:30)
== END 2022-03-29 09:30 | disposition home or self-care (01) | DRG 286 ==
LOC: ER 23:14 → CCL 23:29 → ICU 03-28 00:08
PROVIDERS: Emergency Medicine; Admitting Provider Internal Medicine; Emergency Provider Emergency Medicine; Visit Provider Internal Medicine
PROC: B2111ZZ Fluoroscopy of Multiple Coronary Arteries using Low Osmolar Contrast (ICD-10-PCS; principal; 2022-03-27 23:00)
DX: I51.81 Takotsubo syndrome (principal); I25.42 Coronary artery dissection; I49.3 Ventricular premature depolarization; I10 Essential (primary) hypertension
CPT/HCPCS: 36415; 80048; 80053; 83690; 83880; 84484; 85025; 85610; 85730; 93005; 93306; 93452; 93458; 94760; 96360; 96365; 96372; 96375; 99152; 99153; 99291; C1769; C1887; C1894; J1650; J2250; J2270; J3010; J3490; J7030; Q9967

== ENCOUNTER → 2022-04-05 10:40 | Outpatient (BNVA) | payer MEDICARE, BC, SELFPAY | PROVIDERS: PCP Family Medicine; Visit Provider Nurse Practitioner Family | DX: I51.81 Takotsubo syndrome (principal) | CPT/HCPCS: 36415; 80048; 99213; 99214 ==

== ENCOUNTER 2022-05-01 16:38 | Outpatient (RCR) | payer MEDICARE, BC, SELFPAY | END 2022-05-09 23:59 | disposition home or self-care (01) | LOC: CR 16:38 | PROVIDERS: PCP Family Medicine; Referring Provider Internal Medicine; Visit Provider Internal Medicine | DX: I25.2 Old myocardial infarction (principal) | CPT/HCPCS: 93798 ==

== ENCOUNTER 2022-05-10 11:10 | Outpatient (RCR) | payer MEDICARE, BC, SELFPAY | END 2022-06-08 23:59 | disposition home or self-care (01) | LOC: CR 11:10 | PROVIDERS: PCP Family Medicine; Referring Provider Internal Medicine; Visit Provider Internal Medicine | DX: I25.2 Old myocardial infarction (principal) | CPT/HCPCS: 93798 ==

== ENCOUNTER → 2022-05-23 15:00 | Outpatient (BNVA) | payer MEDICARE, BC, SELFPAY | PROVIDERS: PCP Family Medicine; Visit Provider Internal Medicine | DX: I10 Essential (primary) hypertension (principal); I51.81 Takotsubo syndrome; I25.42 Coronary artery dissection; I25.2 Old myocardial infarction | CPT/HCPCS: 99214 ==

== ENCOUNTER 2022-06-10 13:53 | Outpatient (RCR) | payer MEDICARE, BC, SELFPAY | END 2022-07-09 23:59 | disposition home or self-care (01) | LOC: CR 13:53 | PROVIDERS: PCP Family Medicine; Referring Provider Internal Medicine; Visit Provider Internal Medicine | DX: I25.2 Old myocardial infarction (principal) | CPT/HCPCS: 93798 ==

== ENCOUNTER 2022-07-13 10:40 | Outpatient (RCR) | payer MEDICARE, BC, SELFPAY | END 2022-08-08 23:59 | disposition home or self-care (01) | LOC: CR 10:40 | PROVIDERS: PCP Family Medicine; Referring Provider Internal Medicine; Visit Provider Internal Medicine | DX: I25.2 Old myocardial infarction (principal) | CPT/HCPCS: 93798 ==

== ENCOUNTER 2022-08-09 11:31 | Outpatient (RCR) | payer SELFPAY | END 2022-09-08 23:59 | disposition home or self-care (01) | LOC: CR 11:31 | PROVIDERS: PCP Family Medicine; Referring Provider Internal Medicine; Visit Provider Internal Medicine | DX: I25.2 Old myocardial infarction (principal) ==

== ENCOUNTER 2022-09-13 09:37 | Outpatient (RCR) | payer SELFPAY | END 2022-10-09 23:59 | disposition home or self-care (01) | LOC: CR 09:37 | PROVIDERS: PCP Family Medicine; Referring Provider Internal Medicine; Visit Provider Internal Medicine | DX: I25.2 Old myocardial infarction (principal) ==

== ENCOUNTER 2022-10-10 08:27 | Outpatient (RCR) | payer SELFPAY | END 2022-11-06 23:59 | disposition home or self-care (01) | LOC: CR 08:27 | PROVIDERS: PCP Family Medicine; Referring Provider Internal Medicine; Visit Provider Internal Medicine | DX: I25.2 Old myocardial infarction (principal) ==

== ENCOUNTER 2022-10-29 11:46 | Outpatient (CLI) | payer MEDICARE, BC, SELFPAY ==
--- NOTE | 2022-10-29 12:00 | USCV_ITS ---
Nanda Benavides Age: 67 Gender: F : 1955 Exam Date: 10/29/2022 12:17 Ordering Phys: Dusty Davalos M.D ([email or web address]) Technologist: Jj Nye Exam Location: [facility] Indication: cardiomyopathy BP: 98 / 60 HR: 61 Rhythm: Sinus Technical Quality: Adequate MEASUREMENTS (Male / Female) Normal Values 2D ECHO LV Diastolic Diameter PLAX 4.5 cm 4.2 - 5.9 / 3.9 - 5.3 cm LV Systolic Diameter PLAX 3.6 cm IVS Diastolic Thickness 0.6 cm 0.6 - 1.0 / 0.6 - 0.9 cm IVS Systolic Thickness 1.0 cm LVPW Diastolic Thickness 1.0 cm 0.6 - 1.0 / 0.6 - 0.9 cm LVPW Systolic Thickness 1.0 cm LVOT Diameter 2.0 cm LV Ejection Fraction 2D Teich 42.5 % LV Ejection Fraction MOD 2C 44.8 % LV Ejection Fraction 2C AL 43.6 % LA Diameter 3.1 cm LA Width 3.8 cm LA Height 4.2 cm RA Width 3.3 cm RA Height 4.8 cm Aorta at Sinotubular Diameter 2.3 cm IVC Diameter 1.3 cm M-MODE Aortic Annulus Diameter 1.9 cm LA Ao Ratio MM 1.7 MV E Point Septal Separation 0.6 cm DOPPLER AV Peak Velocity 153.7 cm/s LVOT Peak Velocity 123.0 cm/s AV Area Cont Eq vti 2.7 cm squared AV Area Cont Eq pk 2.6 cm squared MV Peak Velocity 131.0 cm/s MV Area PHT 3.7 cm squared Mitral E to A Ratio 0.9 MV E' Velocity 36.5 cm/s Mitral E to MV E' Ratio 8.6 Mitral E to LV E' Lateral Ratio 7.6 Mitral E to LV E' Septal Ratio 10.1 TR Peak Velocity 277.7 cm/s TR Peak Gradient 30.9 mmHg TR Mean Velocity 232.0 cm/s TR Mean Gradient 22.4 mmHg TR Velocity Time Integral 80.4 cm Right Atrial Pressure 3.0 mmHg Pulmonary Artery Systolic Pressu 33.9 mmHg PV Peak Velocity 84.0 cm/s RV Acceleration Time 0.1 s RV Ejection Time 0.3 s RV AcT/ET 0.3 FINDINGS Left Ventricle Left ventricle is normal in size. LV systolic function is borderline normal with EF of 50-55%. No regional wall motion abnormalities. Right Ventricle Normal in size and function Right Atrium Normal in size Left Atrium Normal in size Mitral Valve Structurally normal mitral valve. Mild mitral regurgitation. Aortic Valve Structurally noraml aortic valve. No significant stenosis or regurgitation. Tricuspid Valve Mild tricuspid regurgitation. Pulmonary artery systolic pressure is normal Pulmonic Valve Mild pulmonic regurgitation. Pericardium Small pericardial effusion Aorta Normal in size IVC Appears to be normal CONCLUSIONS LV systolic function is borderline normal with EF of 50 to 55%. Mild mitral regurgitation Mild tricuspid regurgitation Mild pulmonic regurgitation Small sized pericardial effusion is seen. Compared to prior echocardiogram from 03/28/2022, LV systolic function has improved slightly. Dusty Davalos MD (Electronically Signed) Final Date: 02 November 2022 22:35 S
== END 2022-10-29 11:47 | disposition home or self-care (01) ==
PROVIDERS: PCP Family Medicine; Visit Provider Internal Medicine
DX: I42.9 Cardiomyopathy, unspecified (principal); I08.1 Rheumatic disorders of both mitral and tricuspid valves
CPT/HCPCS: 93306

== ENCOUNTER → 2022-11-05 14:44 | Outpatient (BNVA) | payer MEDICARE, BC, SELFPAY | PROVIDERS: PCP Family Medicine; Visit Provider Internal Medicine | DX: I25.42 Coronary artery dissection (principal); I51.81 Takotsubo syndrome; I10 Essential (primary) hypertension; Z79.82 Long term (current) use of aspirin; R00.2 Palpitations | CPT/HCPCS: 93246; 99214 ==

== ENCOUNTER 2022-11-21 15:09 | Outpatient (CLI) | payer MEDICARE, BC, SELFPAY ==
--- NOTE | 2022-11-21 15:30 | CT_ITS ---
WS: [id number] CT ANGIOGRAM CEREBRAL AND CAROTID ARTERIES HISTORY: FMD TECHNIQUE: CT angiogram is performed of the carotid and cerebral arteries. During arterial injection imaging is obtained from the skull vertex to the aortic arch in 1.25 mm imaging. Coronal and sagittal reformats are submitted. Additional multi planar reformats of the carotid and cerebral arteries are submitted, MIP imaging also reviewed. NASCET criteria utilized. [facility] at least one of these dose optimization techniques: automated exposure control; mA and/or kV adjust ment per patient size (includes targeted exams where dose is matched to clinical indication); or iter ative reconstruction. CONTRAST: Omnipaque 350; 100 mL IV. DLP: 527.74 mGy.cm COMPARISON: None available. Noncontrast CT head is first performed. No acute intracranial hemorrhage or edema. Very minimal atrop hy and small vessel disease. No prior infarct. Carotid Angiogram: Right carotid: Common carotid artery: Arises normally from the innominate artery. No significant plaque or stenosis. Internal carotid artery: No plaque or stenosis. External carotid artery: Patent. Left carotid: Common carotid artery: Arises normally from the aorta. No significant plaque or stenosis. Internal carotid artery: No plaque or stenosis. External carotid artery: Patent. Right vertebral artery: Slightly smaller than the LEFT. Normal. Left vertebral artery: Unremarkable. Arises normally from the subclavian artery. Subclavian arteries: No stenosis or significant abnormality. Upper thorax: Small lymph node adjacent to the aorta. Lungs are clear. Thyroid gland: Normal. Osseous structures: Mild cervical spondylitic changes. CEREBRAL ANGIOGRAM: Intracranial vertebral arteries: LEFT is dominant. Both vertebral arteries are patent. Basilar artery: No significant stenosis or occlusion. No aneurysm. Intracranial Internal carotid arteries: Demonstrates no significant stenosis or plaque. Middle cerebral arteries: Normal. Anterior cerebral arteries and ACOM: Normal. Posterior cerebral arteries and PCOM's: Normal. Dural venous sinuses are normally enhancing. Mastoid air cells: Normal. Paranasal sinuses: Small bilateral mucous retention cysts. Calvarium: Normal. CT/CT angio headneck* [id number] IMPRESSION: 1. Normal carotid arteries. 2. Unremarkable [place]. No evidence for fibromuscular dysplasia or v asculitis. 3. No carotid or cerebral artery stenosis.
[2022-11-21 15:53] LABS: Blood Urea Nitrogen 20 mg/dL (8-23); Glomerular Filtration Rate 71.8 mL/min (90-130)
[2022-11-21] MEDS: iohexol 350 mg/mL 100 mL Btl IV (16:07)
== END 2022-11-21 15:10 | disposition home or self-care (01) ==
LOC: RAD 15:11
PROVIDERS: PCP Family Medicine; Visit Provider Internal Medicine
DX: I77.3 Arterial fibromuscular dysplasia (principal)
CPT/HCPCS: 70496; 70498; 82565; 84520; Q9967

== ENCOUNTER 2022-11-21 15:15 | Outpatient (RCR) | payer SELFPAY | END 2022-12-07 23:59 | disposition home or self-care (01) | LOC: CR 15:15 | PROVIDERS: PCP Family Medicine; Referring Provider Internal Medicine; Visit Provider Internal Medicine | DX: I25.2 Old myocardial infarction (principal) ==

== ENCOUNTER 2022-12-11 10:31 | Outpatient (RCR) | payer SELFPAY | END 2023-01-06 23:59 | disposition home or self-care (01) | LOC: CR 10:31 | PROVIDERS: PCP Family Medicine; Referring Provider Internal Medicine; Visit Provider Internal Medicine | DX: I25.2 Old myocardial infarction (principal) ==

== ENCOUNTER 2022-12-18 09:56 | Outpatient (CLI) | payer MEDICARE, BC, SELFPAY ==
--- NOTE | 2022-12-18 10:07 | CT_ITS ---
WS: [id number] CT ANGIOGRAPHY CHEST, ABDOMEN AND PELVIS. HISTORY: FMD TECHNIQUE: CT angiogram is performed during IV injection. Reformation images reviewed. All CT scans a [email or web address] use at least one of these dose optimization techniques: automated exposure contro l; mA and/or kV adjustment per patient size (includes targeted exams where dose is matched to clinica l indication); or iterative reconstruction. CONTRAST: Omnipaque 350; 100 mL IV. DLP: 714.06 mGy.cm COMPARISON: Prior chest CTA 02/01/[address] angiogram: Normal size aorta and pulmonary artery. Very minimal atherosclerotic plaque in th e thoracic aorta. No coronary artery calcifications identified by CT. Normal appearance otherwise of the thoracic aorta. There is no dissection. No aneurysm. Great vessels normal caliber. No beading or atherosclerotic changes of any significance. Normal size pulmonary artery. Opacification of the pulmo nary artery is limited as this is a CT angiogram. There is mixed opacification of the blood in the pu lmonary artery. Moderate enlargement of the LEFT heart chambers. There is also mild RIGHT atrial dilatation. Small pe ricardial effusion versus pericardial thickening. Mild biapical pleural thickening. There are a few s cattered bilateral areas of linear atelectasis or scar. No mass or nodule. No pneumonia. No mediastin al or hilar adenopathy. Normal chest wall. Abdomen and pelvis CT angiogram: Normal abdominal aorta to the bifurcation. Normal size. No significa nt atherosclerotic plaque. No wall thickening. Bifurcation is intact. Iliac arteries to the femoral a rteries are patent. There is mild narrowing and irregularity involving the proximal celiac axis. Foca l calcification at the origin of the celiac axis. Short segment stenosis of the proximal celiac axis. Stenosis calculated near 50%. Normal SMA. Normal renal arteries. No beading or stenosis. Normal ASHLEY. Low-attenuation mass in the mid liver anteriorly measures 22 x 23 mm. This was also present in 2019 w ithout increase in size. May be a benign hemangioma. Remaining liver is negative. Normal size spleen. No adrenal mass. Negative pancreas and kidneys. No ascites or adenopathy. No fluid. Normal appendix is visualized. No GI tract obstruction. Medicinal tablet in the stomach. No bone destructive lesions. CT/CT ang [facility] abdpel [id number] IMPRESSION: 1. Normal caliber thoracic and abdominal aortas. No dissection or aneurysm. 2. No evidence for fibromuscular disease within the medium-sized arteries. 3. 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 4. Long-term stability low-attenuation mass in the liver. May be a small benig n hemangioma. Stable since 02/01/2019. 5. No pneumonia. 6. Mild LEFT heart enlargement and RIGHT atrial enlargement.
[2022-12-18] MEDS: iohexol 350 mg/mL 500 mL Btl (per mL) IV (10:32)
== END 2022-12-18 09:57 | disposition home or self-care (01) ==
LOC: RAD 10:02
PROVIDERS: PCP Family Medicine; Visit Provider Internal Medicine
DX: I77.3 Arterial fibromuscular dysplasia (principal)
CPT/HCPCS: 71275; 74174; Q9967

== ENCOUNTER → 2023-01-04 10:49 | Outpatient (BNVA) | payer MEDICARE, BC, SELFPAY | PROVIDERS: PCP Family Medicine; Visit Provider Nurse Practitioner Family | DX: I47.1 Supraventricular tachycardia (principal); I73.9 Peripheral vascular disease, unspecified; I10 Essential (primary) hypertension; Z79.82 Long term (current) use of aspirin | CPT/HCPCS: 99214 ==

== ENCOUNTER 2023-01-09 15:18 | Outpatient (RCR) | payer SELFPAY | END 2023-02-06 23:59 | disposition home or self-care (01) | LOC: CR 15:18 | PROVIDERS: PCP Family Medicine; Referring Provider Internal Medicine; Visit Provider Internal Medicine | DX: Z01.89 Encounter for other specified special examinations (principal) | CPT/HCPCS: 93798 ==

== ENCOUNTER 2023-02-07 10:48 | Outpatient (CLI) | payer MEDICARE, BC, SELFPAY ==
--- NOTE | 2023-02-07 11:00 | USR_ITS ---
PROCEDURE INFORMATION: Exam: US Duplex Bilateral Lower Extremity Arteries Exam date and time: 02/07/2023 11:31 AM Age: 67 years old Clinical indication: Other: Cold feet; Additional info: Decreased peripheral pulses TECHNIQUE: Imaging protocol: Real-time ultrasound scan of the arteries of the bilateral lower extremities with 2-D velasco scale, color Doppler flow and spectral waveform analysis. Images documented and saved. [id number](s) are provided. COMPARISON: CT ang ches abdpel [id number] 12/18/2022 10:20 AM. No previous ultrasound is currently available. FINDINGS: Right external iliac artery: The right iliac artery demonstrates systolic velocity measurement of 104.1 cm/s with triphasic waveform. No occlusion is appreciated. Right common femoral artery: The systolic velocity measurement is 64.7 cm/s. No occlusion or significant stenosis is appreciated. Right profunda femoris artery: Not appreciated Right superficial femoral artery: The systolic velocity measurement is 74.7 cm/s. No occlusion or significant stenosis is appreciated. Right popliteal artery: The systolic velocity measurement is 59.7 cm/s. No occlusion or significant stenosis is appreciated. Right calf/foot arteries: The systolic velocity measurement is 58.9 cm/s. No occlusion or significant stenosis is appreciated. The right RJ is 0.75. The waveforms appear biphasic. Left external iliac artery: The left iliac artery demonstrates systolic velocity measurement of 143.3 cm/s with triphasic waveforms. No significant stenosis is appreciated. Left common femoral artery: The systolic velocity measurement is 83.5 cm/s. No occlusion or significant stenosis is appreciated. Left profunda femoris artery: Not appreciated Left superficial femoral artery: The systolic velocity measurement is 79.2 cm/s. No occlusion or significant stenosis is appreciated. Left popliteal artery: The systolic velocity measurement is 69.6 cm/s. No occlusion or significant stenosis is appreciated. Left calf/foot arteries: The systolic velocity measurement is 61 cm/s. No occlusion or significant stenosis is appreciated. The left RJ is 0.91. The waveforms appear biphasic. Soft tissues: No subcutaneous fluid collections are appreciated. No other significant interval changes are appreciated. US/CV arterial duplex [facility] [id number] IMPRESSION: 1. There is patent overall appearance of the lower extremity arterial vessels demonstrated bilaterally with no systolic velocity doubling to indicate Doppler hemodynamically significant stenosis. 2. The waveforms are predominantly triphasic overall with some lower extremity trifurcation level biphasic waveform suggestive of some atherosclerotic change and decreased vascular compliance.
== END 2023-02-07 10:49 | disposition home or self-care (01) ==
LOC: RAD 10:57
PROVIDERS: PCP Family Medicine; Visit Provider Nurse Practitioner Family
DX: I73.9 Peripheral vascular disease, unspecified (principal); I10 Essential (primary) hypertension; R44.8 Other symptoms and signs involving general sensations and perceptions; R09.89 Other specified symptoms and signs involving the circulatory and respiratory systems
CPT/HCPCS: 93925

== ENCOUNTER 2023-02-07 14:21 | Outpatient (RCR) | payer SELFPAY | END 2023-03-08 23:59 | disposition home or self-care (01) | LOC: CR 14:21 | PROVIDERS: PCP Family Medicine; Referring Provider Internal Medicine; Visit Provider Internal Medicine | DX: I25.2 Old myocardial infarction (principal) ==

== ENCOUNTER 2023-03-15 14:34 | Outpatient (RCR) | payer SELFPAY | END 2023-04-08 23:59 | disposition home or self-care (01) | LOC: CR 14:34 | PROVIDERS: PCP Family Medicine; Referring Provider Internal Medicine; Visit Provider Internal Medicine | DX: I25.2 Old myocardial infarction (principal) ==

== ENCOUNTER 2023-04-09 13:09 | Outpatient (RCR) | payer SELFPAY | END 2023-05-09 23:59 | disposition home or self-care (01) | LOC: CR 13:09 | PROVIDERS: PCP Family Medicine; Referring Provider Internal Medicine; Visit Provider Internal Medicine | DX: I25.2 Old myocardial infarction (principal) ==

== ENCOUNTER → 2023-05-06 15:04 | Outpatient (BNVA) | payer MEDICARE, BC, SELFPAY | PROVIDERS: PCP Family Medicine; Visit Provider Internal Medicine | DX: I25.42 Coronary artery dissection (principal); I51.81 Takotsubo syndrome; I10 Essential (primary) hypertension; I25.2 Old myocardial infarction | CPT/HCPCS: 99214 ==

== ENCOUNTER 2023-05-20 11:36 | Outpatient (RCR) | payer SELFPAY | END 2023-06-08 23:59 | disposition home or self-care (01) | LOC: CR 11:36 | PROVIDERS: PCP Family Medicine; Referring Provider Internal Medicine; Visit Provider Internal Medicine | DX: I25.2 Old myocardial infarction (principal) ==

== ENCOUNTER 2023-06-11 13:46 | Outpatient (RCR) | payer SELFPAY | END 2023-07-09 23:59 | disposition home or self-care (01) | LOC: CR 13:46 | PROVIDERS: PCP Family Medicine; Referring Provider Internal Medicine; Visit Provider Internal Medicine | DX: I25.2 Old myocardial infarction (principal) ==

== ENCOUNTER 2023-07-10 11:58 | Outpatient (RCR) | payer SELFPAY | END 2023-08-08 23:59 | disposition home or self-care (01) | LOC: CR 11:58 | PROVIDERS: PCP Family Medicine; Referring Provider Internal Medicine; Visit Provider Internal Medicine | DX: I25.2 Old myocardial infarction (principal) ==

== ENCOUNTER 2023-08-09 13:42 | Outpatient (RCR) | payer SELFPAY | END 2023-09-08 23:59 | disposition home or self-care (01) | LOC: CR 13:42 | PROVIDERS: PCP Family Medicine; Referring Provider Internal Medicine; Visit Provider Internal Medicine | DX: I25.2 Old myocardial infarction (principal) ==

== ENCOUNTER 2023-09-10 10:51 | Outpatient (RCR) | payer SELFPAY | END 2023-10-09 23:59 | disposition home or self-care (01) | LOC: CR 10:51 | PROVIDERS: PCP Family Medicine; Referring Provider Internal Medicine; Visit Provider Internal Medicine | DX: I25.2 Old myocardial infarction (principal) ==

== ENCOUNTER 2023-10-10 13:11 | Outpatient (RCR) | payer SELFPAY | END 2023-11-07 23:59 | disposition home or self-care (01) | LOC: CR 13:11 | PROVIDERS: PCP Family Medicine; Referring Provider Internal Medicine; Visit Provider Internal Medicine | DX: I25.2 Old myocardial infarction (principal) ==

== ENCOUNTER → 2023-11-06 15:03 | Outpatient (BNVA) | payer MEDICARE, BC, SELFPAY | PROVIDERS: PCP Family Medicine; Visit Provider Internal Medicine | DX: I25.42 Coronary artery dissection (principal); I51.81 Takotsubo syndrome; I10 Essential (primary) hypertension | CPT/HCPCS: 99214 ==

== ENCOUNTER 2023-11-11 13:45 | Outpatient (RCR) | payer SELFPAY | END 2023-12-08 23:59 | disposition home or self-care (01) | LOC: CR 13:45 | PROVIDERS: PCP Family Medicine; Referring Provider Internal Medicine; Visit Provider Internal Medicine | DX: I25.2 Old myocardial infarction (principal) ==

== ENCOUNTER 2023-11-11 14:22 | Outpatient (RCR) | payer MEDICARE, BC, SELFPAY | END 2023-12-08 23:59 | disposition home or self-care (01) | LOC: SPT 14:22 | PROVIDERS: PCP Family Medicine; Visit Provider Orthopaedic Surgery | DX: M77.11 Lateral epicondylitis, right elbow (principal) | CPT/HCPCS: 97033; 97110; 97140; 97161; G0283 ==

== ENCOUNTER 2023-12-09 06:00 | Outpatient (RCR) | payer MEDICARE, BC, SELFPAY | END 2024-01-07 23:59 | disposition home or self-care (01) | LOC: SPT 06:00 | PROVIDERS: PCP Family Medicine; Visit Provider Orthopaedic Surgery | DX: M77.11 Lateral epicondylitis, right elbow (principal) | CPT/HCPCS: 97033; 97110; 97140; G0283 ==

== ENCOUNTER 2023-12-10 14:00 | Outpatient (RCR) | payer SELFPAY | END 2024-01-07 23:59 | disposition home or self-care (01) | LOC: CR 14:00 | PROVIDERS: PCP Family Medicine; Referring Provider Internal Medicine; Visit Provider Internal Medicine | DX: I25.2 Old myocardial infarction (principal) ==

== ENCOUNTER 2024-01-09 13:36 | Outpatient (RCR) | payer SELFPAY | END 2024-02-07 23:59 | disposition home or self-care (01) | LOC: CR 13:36 | PROVIDERS: PCP Family Medicine; Referring Provider Internal Medicine; Visit Provider Internal Medicine | DX: I25.2 Old myocardial infarction (principal) ==

== ENCOUNTER 2024-02-11 13:13 | Outpatient (RCR) | payer SELFPAY | END 2024-03-08 23:59 | disposition home or self-care (01) | LOC: CR 13:13 | PROVIDERS: PCP Family Medicine; Referring Provider Internal Medicine; Visit Provider Internal Medicine | DX: I25.2 Old myocardial infarction (principal) ==

== ENCOUNTER 2024-03-10 15:24 | Outpatient (RCR) | payer SELFPAY | END 2024-04-08 23:59 | disposition home or self-care (01) | LOC: CR 15:24 | PROVIDERS: PCP Family Medicine; Referring Provider Internal Medicine; Visit Provider Internal Medicine | DX: I21.3 ST elevation (STEMI) myocardial infarction of unspecified site (principal) ==

== ENCOUNTER 2024-03-27 08:08 | Outpatient (CLI) | payer MEDICARE, BC, SELFPAY ==
--- NOTE | 2024-03-27 08:17 | MR_ITS ---
WS: [id number] MRI RIGHT ELBOW WITHOUT CONTRAST. COMPARISON: None Multiplanar, multisequence imaging is performed without contrast. No fractures or marrow edema. No significant joint effusion. There is a small amount of increased T2 signal within the radial collateral ligament consistent with a partial tear. The common extensor tend on is normal. There is no significant joint effusion. The ulnar collateral ligament and common flexor tendons are normal. Normal appearance of the biceps tendon. No muscle edema or atrophy. MR/MR elbow RT wo con* [id number] IMPRESSION: 1. There is slight increased T2 signal in the central radial collateral ligame nt consistent with a partial tear. 2. No additional tendon or ligament tears. 3. No fractures or marrow edema.
== END 2024-03-27 08:09 | disposition home or self-care (01) ==
LOC: RAD 08:08
PROVIDERS: PCP Family Medicine; Visit Provider Orthopaedic Surgery
DX: M77.11 Lateral epicondylitis, right elbow (principal)
CPT/HCPCS: 73221

== ENCOUNTER 2024-04-09 11:45 | Outpatient (RCR) | payer SELFPAY | END 2024-05-14 09:09 | disposition home or self-care (01) | LOC: CR 11:45 | PROVIDERS: PCP Family Medicine; Referring Provider Internal Medicine; Visit Provider Internal Medicine | DX: I25.2 Old myocardial infarction (principal) ==

== ENCOUNTER 2024-06-09 13:29 | Outpatient (RCR) | payer SELFPAY | END 2024-07-09 23:59 | disposition home or self-care (01) | LOC: CR 13:29 | PROVIDERS: PCP Family Medicine; Referring Provider Internal Medicine; Visit Provider Internal Medicine | DX: I25.2 Old myocardial infarction (principal) ==

== ENCOUNTER → 2024-06-18 08:00 | Outpatient (BNVA) | payer MEDICARE, BC, SELFPAY | PROVIDERS: PCP Family Medicine; Visit Provider Podiatrist Foot & Ankle Surgery | DX: L60.3 Nail dystrophy (principal) | CPT/HCPCS: 99203 ==

== ENCOUNTER → 2024-08-05 13:38 | Outpatient (BNVA) | payer MEDICARE, BC, SELFPAY | PROVIDERS: PCP Family Medicine; Visit Provider Internal Medicine | DX: I25.42 Coronary artery dissection (principal); I51.81 Takotsubo syndrome; I10 Essential (primary) hypertension | CPT/HCPCS: 99214 ==

== ENCOUNTER → 2024-08-27 09:00 | Outpatient (BNVA) | payer MEDICARE, BC, SELFPAY | PROVIDERS: PCP Family Medicine; Visit Provider Podiatrist Foot & Ankle Surgery | DX: B35.1 Tinea unguium (principal) | CPT/HCPCS: 99213 ==

== ENCOUNTER → 2025-05-05 12:27 | Outpatient (BNVA) | payer MEDICARE, BC, SELFPAY | PROVIDERS: PCP Family Medicine; Visit Provider Internal Medicine | DX: I51.81 Takotsubo syndrome (principal); I25.42 Coronary artery dissection; I10 Essential (primary) hypertension; Z79.82 Long term (current) use of aspirin; I25.2 Old myocardial infarction; R06.02 Shortness of breath; R07.9 Chest pain, unspecified | CPT/HCPCS: 99214 ==

== ENCOUNTER 2025-06-04 07:55 | Outpatient (CLI) | payer MEDICARE, BC, SELFPAY ==
--- NOTE | 2025-06-04 08:00 | USCV_ITS ---
Nanda Benavides Age: 70 Gender: F : 1955 Exam Date: 06/04/2025 08:43 Ordering Phys: Dusty Davalos M.D ([email or web address]) Technologist: Exam Location: [facility] [place]: cp sob BP: 128 / 80 HR: 61 Rhythm: Sinus Technical Quality: Adequate MEASUREMENTS (Male / Female) Normal Values 2D ECHO LV Diastolic Diameter PLAX 4.4 cm 4.2 - 5.9 / 3.9 - 5.3 cm IVS Diastolic Thickness 1.1 cm 0.6 - 1.0 / 0.6 - 0.9 cm IVS Systolic Thickness 1.2 cm LVPW Diastolic Thickness 1.0 cm 0.6 - 1.0 / 0.6 - 0.9 cm LVPW Systolic Thickness 1.5 cm LVOT Diameter 2.0 cm LV Ejection Fraction 2D Teich 56.3 % LV Ejection Fraction MOD 4C 65.2 % LV Ejection Fraction MOD 2C 71.1 % LV Ejection Fraction 2C AL 70.5 % LA Diameter 2.8 cm RA Systolic Volume 4C AL 29.3 ml RA Systolic Volume 4C MOD 28.8 ml Aorta at Sinotubular Diameter 2.7 cm IVC Diameter 1.9 cm M-MODE LA Ao Ratio MM 1.4 AV Cusp Separation MM 1.8 cm DOPPLER AV Peak Velocity 153.0 cm/s LVOT Peak Velocity 90.0 cm/s AV Area Cont Eq vti 1.9 cm squared AV Area Cont Eq pk 1.8 cm squared MV Peak Velocity 106.0 cm/s MV Area PHT 2.9 cm squared Mitral E to A Ratio 0.7 TR Peak Velocity 243.0 cm/s TR Peak Gradient 23.6 mmHg PV Peak Velocity 107.0 cm/s FINDINGS Left Ventricle Normal left ventricular size and systolic function, EF 55-60%. No regional wall motion abnormalities. Grade 1 diastolic dysfunction Right Ventricle Normal in size and function Right Atrium Normal in size Left Atrium Normal in size Mitral Valve Structurally normal mitral valve. Mild mitral regurgitation. Aortic Valve Structure normal aortic valve. No significant stenosis or regurgitation. Tricuspid Valve Mild tricuspid regurgitation. Insufficient TR jet to calculate RVSP Pulmonic Valve Mild pulmonic regurgitation Pericardium Trace pericardial effusion Aorta Normal in size IVC Appears to be normal CONCLUSIONS LV systolic function is normal with EF of 55-60% Grade 1 diastolic dysfunction Mild mitral regurgitation Mild tricuspid regurgitation Mild pulmonic regurgitation Trace pericardial effusion Dusty Davalos MD (Electronically Signed) Final Date: 08 June 2025 10:17 S
== END 2025-06-04 07:56 | disposition home or self-care (01) ==
LOC: RAD 07:56
PROVIDERS: PCP Family Medicine; Visit Provider Internal Medicine
DX: R07.9 Chest pain, unspecified (principal); R06.02 Shortness of breath
CPT/HCPCS: 93306